=== PATIENT | female | born 1970 | race Caucasian/White ===

== ENCOUNTER 2018-10-24 09:17 | Observation (INO) | payer MEDICAID ==
[2018-10-14 11:24] LABS: ADD MAN DIFF? NO
[2018-10-14 11:30] LABS: WHITE BLOOD COUNT 8.9 10^3/ul (4.8-10.8)
[2018-10-14 11:31] LABS: BASOPHIL # 0.1 10^3/ul (0.0-0.1); BASOPHILS % 0.8 % (0.0-2.0); EOSINOPHILS # 0.2 10^3/ul (0.0-0.5); EOSINOPHILS % 1.7 % (0.0-7.0); HEMATOCRIT 40.5 % (37.0-47.0); HEMOGLOBIN 13.1 g/dl (12.0-16.0); LYMPHOCYTES # 2.7 10^3/ul (0.8-2.9); LYMPHOCYTES % 30.6 % (15.0-51.0); MEAN CORPUSCULAR HEMOGLOBIN 27.6 pg (29.0-33.0); MEAN CORPUSCULAR HGB CONC 32.3 g/dl (32.0-37.0); MEAN CORPUSCULAR VOLUME 85.3 fl (82.0-101.0); MEAN PLATELET VOLUME 10.3 fl (7.4-10.4); MONOCYTE # 0.6 10^3/ul (0.3-0.9); MONOCYTES % 7.1 % (0.0-11.0); NEUTROPHIL # 5.3 10^3/ul (1.6-7.5); NEUTROPHILS % 59.5 % (39.0-77.0); PLATELET COUNT 277 10^3/UL (140-415); RED BLOOD COUNT 4.75 10^6/ul (4.20-5.40); RED CELL DISTRIBUTION WIDTH 13.7 % (11.5-14.5)
[2018-10-14 11:57] LABS: ALANINE AMINOTRANSFERASE 38 IU/L (13-69); ALBUMIN 4.2 g/dl (3.3-4.9); ALKALINE PHOSPHATASE 80 IU/L (42-121); ANION GAP 6 (5-13); ASPARTATE AMINO TRANSFERASE 27 IU/L (15-46); BILIRUBIN,INDIRECT 0.5 mg/dl (0-1.1); BILIRUBIN,TOTAL 0.5 mg/dl (0.2-1.3); BLOOD UREA NITROGEN 12 mg/dl (7-20); CALCIUM 10.1 mg/dl (8.4-10.2); CARBON DIOXIDE 30 mmol/L (21-31); CHLORIDE 104 mmol/L (97-110); CREATININE 0.54 mg/dl (0.44-1.00); Estimated GFR > 60 mL/min (>60); GLUCOSE 94 mg/dl (70-220); POTASSIUM 4.2 mmol/L (3.5-5.1); SODIUM 140 mmol/L (135-144); TOTAL PROTEIN 7.7 g/dl (6.1-8.1)
[2018-10-14 11:59] LABS: INR 0.92; PROTIME 12.4 Sec (11.9-14.9)
[2018-10-24] MEDS: SOD CHLORIDE 0.9% 1,000 ML IV (10:00)
[2018-10-24] MEDS ORDERED: GLYCOPYRROLATE 0.4 MG INJ (11:24)
[2018-10-24] MEDS ORDERED: NEOSTIGMINE 3 MG/3 ML SYRINGE (11:24)
[2018-10-24] MEDS ORDERED: FENTAnyl 50 MCG/ML VIAL (11:24)
[2018-10-24] MEDS ORDERED: DEXAMETHASONE 4 MG/ML 1 ML INJ (11:24)
[2018-10-24] MEDS ORDERED: MIDAZOLAM 1 MG/ML 2 ML INJ (11:24)
[2018-10-24] MEDS ORDERED: PROPOFOL 20 ML (11:24)
[2018-10-24] MEDS ORDERED: ROCURONIUM 50 MG INJ (11:24)
[2018-10-24] MEDS ORDERED: LIDOCAINE 2% (SDV) 5 ML INJ (11:24)
[2018-10-24] MEDS ORDERED: ONDANSETRON 4 MG INJ (11:25)
[2018-10-24] MEDS ORDERED: SUCCINYLCHOLINE CHLORIDE 100 MG/5 ML SYG IV ×2 (13:58→14:20)
[2018-10-24] MEDS ORDERED: CLINDAMYCIN 900 MG/D5W (PMX) 50 ML IVPB (13:59)
[2018-10-24] MEDS: D5W-0.45 NACL + KCL 20 MEQ 1,000 ML IV ×2 (15:16→17:21)
[2018-10-24] MEDS ORDERED: ACETAMINOPHEN 1000MG/100ML IV 100 ML IVPB (15:30)
[2018-10-24] MEDS ORDERED: ONDANSETRON 4 MG INJ IV (15:30)
[2018-10-24] MEDS: morphine 2 MG INJ IV (17:20)
[2018-10-24] MEDS ORDERED: HYDROCODONE/APAP (5/325) TAB PO (21:30)
[2018-10-24] MEDS: CLINDAMYCIN 600 MG/D5W (PMX) 50 ML IVPB (23:45)
[2018-10-25] MEDS: D5W-0.45 NACL + KCL 20 MEQ 1,000 ML IV ×2 (01:08→13:13)
[2018-10-25 08:11] LABS: ADD MAN DIFF? NO
[2018-10-25 08:20] LABS: BASOPHILS % 0.1 % (0.0-2.0); HEMATOCRIT 39.6 % (37.0-47.0); HEMOGLOBIN 12.9 g/dl (12.0-16.0); LYMPHOCYTES # 1.6 10^3/ul (0.8-2.9); LYMPHOCYTES % 11.2 % (15.0-51.0); MEAN CORPUSCULAR HEMOGLOBIN 27.3 pg (29.0-33.0); MEAN CORPUSCULAR HGB CONC 32.6 g/dl (32.0-37.0); MEAN CORPUSCULAR VOLUME 83.9 fl (82.0-101.0); MEAN PLATELET VOLUME 11.2 fl (7.4-10.4); NEUTROPHIL # 11.9 10^3/ul (1.6-7.5); NEUTROPHILS % 81.2 % (39.0-77.0); PLATELET COUNT 291 10^3/UL (140-415); RED BLOOD COUNT 4.72 10^6/ul (4.20-5.40)
[2018-10-25 08:20] LABS: WHITE BLOOD COUNT 14.6 10^3/ul (4.8-10.8)
[2018-10-25 08:49] LABS: ANION GAP 11 (5-13); BLOOD UREA NITROGEN 7 mg/dl (7-20); CALCIUM 9.4 mg/dl (8.4-10.2); CARBON DIOXIDE 23 mmol/L (21-31); CHLORIDE 108 mmol/L (97-110); Estimated GFR > 60 mL/min (>60); GLUCOSE 135 mg/dl (70-220); POTASSIUM 4.2 mmol/L (3.5-5.1); SODIUM 142 mmol/L (135-144)
== END 2018-10-25 18:15 | disposition home or self-care (01) ==
LOC: SDS 09:17 → MS1 15:17 → SDS 15:17 → REC 15:20 → SDS 10-25 14:49 → REC 10-25 14:49 → MS1 17:13 → REC 17:13 → SDS 15:17 → MS1 17:59 → SDS 15:17 → MS1 15:17
DX: D05.11 Intraductal carcinoma in situ of right breast (principal)
CPT/HCPCS: 19307; 71045; 80048; 80053; 85025; 85610; 85730; 88307; 93005